=== PATIENT | female | born 1990 | race Caucasian/White ===

== ENCOUNTER 2022-10-02 13:48 | Emergency (ER) | payer OTHER, MEDICAID, SELFPAY ==
[2022-10-02] VITALS (13 sets, daily range): BP systolic 114–136; BP diastolic 76–90; PULSE 86–121; RESP 18; TEMP 36.9; O2SAT 81–100
--- NOTE | 2022-10-02 15:37 | CRLHL7_ITS ---
For Patients: As a result of the Century Cures Act, medical imaging exams and procedure reports are released immediately into your electronic medical record. You may view this report before your referring provider. If you have questions, please contact your health care provider. INDICATION: Six weeks and bleeding. TECHNIQUE: Ultrasound pelvis transabdominal and transvaginal for better assessment or to better visualize the endometrium. Real-time sonographic images with spectral and color Doppler imaging of the ovaries were obtained. COMPARISON: None. FINDINGS: Uterus: size cm. Normal echotexture of the myometrium. No masses. Endometrium: Transvaginal imaging was performed to better evaluate the endometrium. Endometrial thickness measures 17 mm. No intrauterine gestational sac. Right ovary 4.3 x 2.6 x 3.0 centimeters. Left ovary 3.1 x 1.9 x 2.1 centimeters. Indeterminate 1.7 centimeter solid structure adjacent to the right ovary with some scant vascularity. Normal arterial and venous blood flow is demonstrated in both ovaries. Cul-de-sac: Trace free fluid. IMPRESSION: No intrauterine gestational sac. Recommend OB Gyne follow-up and correlation with beta HCG and short-term follow-up with ultrasound. Indeterminate 1.7 centimeter solid structure adjacent to the right ovary with some scant vascularity. Ectopic is not excluded given no intrauterine gestational sac in this patient. Recommend OB Gyne follow-up and correlation with beta HCG and short-term follow-up with ultrasound. Case discussed with Dr. Aguiar at 3:30 p.m. on 10/02/2022. Dictated by Abhay Sabillon MD @ 10/02/2022 5:22:37 PM (Electronically Signed)
--- NOTE | 2022-10-02 16:58 | ED.NURSE ---
Pt resting on cart. Dad at bedside. Pt denies needs.
--- NOTE | 2022-10-02 16:59 | ED.GENADULT ---
HPI - General Adult General Date Seen: 10/02/22 Chief complaint: Vaginal Bleeding Stated complaint: 6 weeks and bleeding Time Seen by Provider: 10/02/22 16:40 Source: patient History of Present Illness HPI narrative: Patient is a 32-year-old who presents with an LMP of August 19, starting to have spotting and bleeding this morning an ongoing since then. This was a bit of a surprise but desired and she is tearful and somewhat upset at the possibility that she might be dealing with a miscarriage. She has had some cramping but minimal. No significant abdominal pain. No complications or difficulties with her prior 2 pregnancies. Her youngest child is almost 1-year-old. She has not had any fevers, vomiting, urinary symptoms. No recent trauma. She is O-positive. Related Data Allergies Allergy/AdvReac Type Severity Reaction Status Date / Time Penicillins Allergy Verified 10/02/22 14:37 Review of Systems Status of ROS: Reports: 10 or more systems reviewed and unremarkable except as noted in History and below PFSH PFS Social History Smoking Status: Never smoker Do you use any of these nicotine containing products: None Second hand tobacco smoke exposure: Yes How often do you have a drink containing alcohol: monthly or less How many standard drinks containing alcohol do you have on a typical day: 1 or 2 How often do you have six or more drinks on one occasion: Never AUDIT-C Alcohol total score: 1 Non-prescribed substance use: denies use service: No Exam Narrative: Exam Narrative: Vital signs as noted above. In general, an alert, well-appearing patient. Head: Normocephalic, atraumatic. Eyes: Pupils are equal reactive. Extraocular movements are full. Conjunctivae are normal. ENT: Mucous membranes are moist. Throat is normal. Neck: Supple without lymphadenopathy. Heart: Regular rate and rhythm. No murmur or rub. Lungs: Clear bilaterally. No increased work of breathing, crackles or wheezes. Abdomen: Soft and nontender. No organomegaly. Extremities: Well perfused. No edema. No calf tenderness. Pulses intact. Neurologic: Patient is alert and oriented to person and place. Speech is fluent. Face is symmetric. Moves all extremities equally. Affect: Normal. Skin: Warm and dry. Well perfused. Const: Vital Signs, click to edit/add: Vital Signs - 24 hr 10/02/22 14:37 10/02/22 16:30 10/02/22 16:45 Temperature 98.4 F Pulse Rate 91 Pulse Rate [Pulse Oximeter] 86 96 Respiratory Rate 18 Blood Pressure Blood Pressure [Ri ght Forearm] 136/90 H 132/88 Pulse Oximetry 100 100 99 Oxygen Delivery Me thod Room Air 10/02/22 17:00 10/02/22 17:02 10/02/22 17:15 Temperature Pulse Rate 91 86 92 Pulse Rate [Pulse Oximeter] Respiratory Rate Blood Pressure 125/81 Blood Pressure [Ri ght Forearm] Pulse Oximetry 98 98 99 Oxygen Delivery Me thod 10/02/22 17:30 10/02/22 17:31 10/02/22 17:45 Temperature Pulse Rate 88 89 94 Pulse Rate [Pulse Oximeter] Respiratory Rate Blood Pressure 114/79 Blood Pressure [Ri ght Forearm] Pulse Oximetry 99 100 100 Oxygen Delivery Me thod 10/02/22 18:00 10/02/22 18:02 10/02/22 18:15 Temperature Pulse Rate 93 88 91 Pulse Rate [Pulse Oximeter] Respiratory Rate Blood Pressure 118/76 Blood Pressure [Ri ght Forearm] Pulse Oximetry 100 100 100 Oxygen Delivery Me thod 10/02/22 18:31 Temperature Pulse Rate 121 H Pulse Rate [Pulse Oximeter] Respiratory Rate Blood Pressure Blood Pressure [Ri ght Forearm] Pulse Oximetry 81 L Oxygen Delivery Me thod Documenting provider has reviewed patient's vital signs: yes Course Course Hospital Course: We were able to access her [facility] records to confirm her blood type. I have ordered a quant HCG as well as a CBC. A formal OB transvaginal ultrasound is pending at this time, however my review of the images does not show a visible within the uterus. As the beta HCG is pending, it is difficult to know how to interpret that, but given her dates would expect to see something in the uterus at this point. Beta hCG returned at 162. Hemoglobin normal. Final radiology report is as follows: No intrauterine gestational sac. Recommend OB Gyne follow-up and correlation with beta HCG and short-term follow-up with ultrasound. Indeterminate 1.7 centimeter solid structure adjacent to the right ovary with some scant vascularity. Ectopic is not excluded given no intrauterine gestational sac in this patient. Recommend OB Gyne follow-up and correlation with beta HCG and short-term follow-up with ultrasound. I have discussed this with the patient. At this point with the very low beta HCG, I suspect this is likely a miscarriage, although I discussed with her at that technically an ectopic cannot be entirely ruled out. She does think interestingly that that structure next to the right ovary has been seen on previous ultrasounds. For now, I have recommended that she have a repeat beta-hCG with her [facility] on Wednesday to document that the beta hCG is continuing to fall. In the meantime, if she were to develop heavy bleeding, severe pain, lightheadedness, fainting, or any other worsening symptoms she should return to the emergency department for re-evaluation. She is comfortable with this. She can take ibuprofen or Tylenol as needed for pain. Further recommendations per her OB Gyne. Vital Signs Vital signs: Initial Vital Signs Temperature 98.4 F 10/02/22 14:37 Temperature Source Temporal Artery Scan 10/02/22 14:37 Pulse Rate 86 10/02/22 14:37 Pulse Rhythm 10/02/22 14:37 Respiratory Rate 18 10/02/22 14:37 Blood Pressure 136/90 H 10/02/22 14:37 Blood Pressure Mean 105 10/02/22 14:37 Blood Pressure Position Sitting 10/02/22 14:37 Pulse Oximetry 100 10/02/22 14:37 Oxygen Delivery Method 10/02/22 14:37 Vital Signs Temperature 98.4 F 10/02/22 14:37 Pulse Rate 86 10/02/22 14:37 Respiratory Rate 18 10/02/22 14:37 Blood Pressure 136/90 H 10/02/22 14:37 Pulse Oximetry 100 10/02/22 14:37 Oxygen Delivery Method 10/02/22 14:37 Temperature 98.4 F 10/02/22 14:37 Pulse Rate 121 H 10/02/22 18:31 Respiratory Rate 18 10/02/22 14:37 Blood Pressure 118/76 10/02/22 18:02 Pulse Oximetry 81 L 10/02/22 18:31 Oxygen Delivery Method 10/02/22 14:37 Medical Decision Making Lab Data Labs: Lab Results 10/02/22 10/02/22 Range/Units 17:05 17:05 WBC 10.32 (4.50-11.00) K/uL RBC 4.45 (4.00-5.20) m/uL Hgb 13.7 (12.0-16.0) gm/dL Hct 40.4 (33.0-51.0) % MCV 91 (80-100) fL MCH 31 (26-34) pg MCHC 34 (32-36) gm/dL RDW Coeff of Felipa 12.8 (11.5-15.5) % Plt Count 315 (140-440) K/uL Neut % (Auto) 68.1 (42.0-72.0) % Lymph % (Auto) 22.3 (20-44) % [place] % (Auto) 7.5 (0.0-11.0) % Eos % (Auto) 1.6 (0.0-7.0) % Baso % (Auto) 0.4 (0.0-3.0) % Neut # (Auto) 7.04 H (1.7-7.0) K/uL Lymph # (Auto) 2.30 (0.90-2.90) K/uL [place] # (Auto) 0.80 (0.00-0.90) K/UL Eos # (Auto) 0.16 (0.00-0.50) K/uL Baso # (Auto) 0.04 (0.00-0.30) K/uL HCG, Quant 162.01 mIU/mL Discharge Plan Discharge Clinical Impression: Vaginal bleeding in Patient Disposition: Home, Self-Care Condition: Stable Instructions: Miscarriage (ED) Additional Instructions: Follow-up for repeat HCG testing on Wednesday, further instructions per your OB doctor. Return at any time for heavier bleeding, severe pain, lightheadedness or fainting, or other concerns. Stand Alone Forms: [employer] Info Instructions
[2022-10-02 17:14] LABS: Basophils Absolute Auto 0.04 K/uL (0.00-0.30); Basophils Percent Auto 0.4 % (0.0-3.0); Eosinophils Absolute Auto 0.16 K/uL (0.00-0.50); Eosinophils Percent Auto 1.6 % (0.0-7.0); Hematocrit 40.4 % (33.0-51.0); Hemoglobin* 13.7 gm/dL (12.0-16.0); Immature Granulocytes Abs Auto 0.01 K/uL (0.00-0.30); Immature Granulocytes Pct Auto 0.1 %; Lymphocytes Percent Auto 22.3 % (20-44); Mean Corpuscular HGB Conc 34 gm/dL (32-36); Mean Corpuscular Hemoglobin 31 pg (26-34); Mean Corpuscular Volume 91 fL (80-100); Monocytes Percent Auto 7.5 % (0.0-11.0); Neutrophils Absolute Auto 7.04 K/uL (1.7-7.0); Neutrophils Percent Auto 68.1 % (42.0-72.0); Platelet Count* 315 K/uL (140-440); RDW Coefficient of Variation % 12.8 % (11.5-15.5); Red Blood Count 4.45 m/uL (4.00-5.20); White Blood Count* 10.32 K/uL (4.50-11.00)
[2022-10-02 17:15] LABS: Slide Review Reflex No
[2022-10-02 17:56] LABS: HCG Quantitative* 162.01 mIU/mL
== END 2022-10-02 18:40 | disposition home or self-care (01) ==
PROVIDERS: Emergency Provider Emergency Medicine; PCP Family Medicine
DX: O20.9 Hemorrhage in early pregnancy, unspecified (principal); Z3A.01 Less than 8 weeks gestation of pregnancy
CPT/HCPCS: 36415; 76817; 84702; 85025; 99283; 99284

== ENCOUNTER 2024-02-13 04:35 | Inpatient (IN) | payer BC, SELFPAY ==
[2024-02-13] VITALS (193 sets, daily range): BP systolic 87–160; BP diastolic 50–112; PULSE 60–121; RESP 15–16; TEMP 36.6; O2SAT 89–100; BMI 36.3
[2024-02-13 03:16] LABS: Total Protein Urine 14 mg/dL
[2024-02-13 03:19] LABS: Creatinine Urine 14.1 mg/dL
[2024-02-13 04:21] LABS: Hematocrit 34.1 % (33.0-51.0); Hemoglobin* 11.3 gm/dL (12.0-16.0); Mean Corpuscular HGB Conc 33 gm/dL (32-36); Mean Corpuscular Hemoglobin 31 pg (26-34); Mean Corpuscular Volume 94 fL (80-100); Platelet Count* 243 K/uL (140-440); Red Blood Count 3.64 m/uL (4.00-5.20); White Blood Count* 8.58 K/uL (4.50-11.00)
[2024-02-13] MEDS: hydrOXYzine pamoate 25 MG CAPSULE 50 MG PO ×2 (04:23→15:19)
[2024-02-13 04:29] LABS: Slide Review Reflex No
[2024-02-13 04:35] LABS: Alanine Aminotransferase* 12 U/L (4-35); Aspartate Amino Transferase* 22 U/L (12-35); Blood Urea Nitrogen* 8 mg/dL (5-24); Creatinine* 0.6 mg/dL (0.5-1.5); Estimated Glomerular Filt Rate 123 ml/min
--- NOTE | 2024-02-13 05:27 | P.OBHP_ITS ---
OB - H&P: HPI Labor/Induction History of Present Illness Date Seen: 02/13/24 Chief Complaint: The patient is a 33 year old 4 para 2 at 38.3 weeks gestation by 1st trimester ultrasound, who presents with headache. has been complicated by macrosomia but otherwise normal. Chief complaint: Maternity Indications for induction: pre-eclampsia Narrative: Savannah Tam is a 33 year old female who has had an uncomlicated to date with the exception of renal pelviectasis and macrosomia. She did see perinatology and had a repeat ultrasound that did not show persistent pelviectas is but did show macrosomia. A repeat growth ultrasound at 36 weeks showed EFW at 3400 grams. She has felt well through her with no concerns until yesterday afternoon when she started to develop a headache. This worsened through the day despite tylenol so she contacted the center for advice. She was checking her blood pressure at home and it was 130s-150s/80s-90s. No history of hypertension. No preeclampsia with her other 2 pregnancies. She did have a headache at the end of her 2nd but was also dealing with influenza at the time of delivery. She has not had any recent contractions or leaking fluid. No visual changes. No abdominal pain. She was planning for induction for macrosomia in 4 days. History of Present Dating criteria: based on 1st trimester US only care: good care Labs Blood type: O (+) positive Rubella: immune RPR/VDLR: nonreactive GBS status: negative HBsAG: negative Review of Systems Status of ROS: Reports: 10 or more systems reviewed and unremarkable except as noted in History and below Meds Home Medications and Allergies Home Medications Medication Instructions Recorded Confirmed Type docosahexaenoic acid PO 02/13/24 History sertraline 100 mg tablet 100 mg PO QAM 02/13/24 02/13/24 History Allergies Allergy/AdvReac Type Severity Reaction Status Date / Time Penicillins Allergy Rash Verified 02/13/24 03:17 OB - H&P: Exam Physical Exam: Vital signs: Pulse BP Pulse Ox 80 142/92 H 98 02/13/24 04:27 02/13/24 04:27 02/13/24 02:53 Constitutional: Constitutional: no acute distress Routine HEENT Exam: Head: Present atraumatic and normal inspection Eye: Present EOMI and normal appearance; Absent conjunctival injection or periorbital swelling ENT: Present mucous membranes moist Routine Respiratory Exam: Respiratory: Present CTA bilaterally; Absent crackles Routine Cardiovascular Exam: Cardiovascular: RRR, S1 and S2 Detailed Labor and Delivery Exam: Patient Gravid: Yes Dilation (cm): 1 Effacement (%): 30 Cervix position: posterior Consistency: firm Cervical ripeness score: 1 Tachysystole: No Comments: Cervical xxam per RN. Irregular contractions on toco that patient does not feel. Fetus cephalic by vanessaopolds and confirmed by bedside ultrasound. EFW [id number] g on exam. Fetus (Single): Station: -3 Amniotic Membrane Status: intact Routine Extremities Exam: Extremities: Absent calf tenderness, tenderness or palpable cord Routine Neurological Exam: Present alert, oriented X3, moving all extremities, vision grossly intact and hearing grossly intact; Absent clonus Routine Psychiatric Exam: Present normal affect OB - Results Labs Labs: Short CBC 02/13/24 Range/Units 04:00 WBC 8.58 (4.50-11.00) K/uL Hgb 11.3 L (12.0-16.0) gm/dL Hct 34.1 (33.0-51.0) % Plt Count 243 (140-440) K/uL BMP 02/13/24 04:00 BUN 8 Creatinine 0.6 Liver Function 02/13/24 Range/Units 04:00 AST 22 (12-35) U/L ALT 12 (4-35) U/L Protein creatinine ratio: 1.0 OB - Problem Based A/P Additional Plan (1) Preeclampsia, severe: Status: Acute Plan Meets criteria for preeclampsia with severe features. Multiple blood pressures in elevated but not severe range in triage and on the floor. Headache improved some with vistaril but still present. Will induce now with cytotec due to brewster score of 1. Anticipate transitioning to pitocin later today. Discussed risks with her. Also recommend starting magnesium per protocol. Again discussed risk. Will consult OB per protocol and get q6h labs and frequent vitals. Will manage expectantly. Will need to be on magnesium for 24 hours post delivery. Will need peds provider at delivery due to magnesium.
[2024-02-13] MEDS: LACTATED RINGERS 1000 ML 1,000 ML 75 ML IV ×2 (05:50→18:01)
[2024-02-13] MEDS: MAGNESIUM IV 4 GM/100 ML PIGGYBACK IVPB (05:50)
[2024-02-13 05:57] LABS: Magnesium* 1.8 mg/dL (1.5-2.6)
[2024-02-13] MEDS: MAGNESIUM Infusion 40 GM/1,000 ML IV.SOLN IVPB (06:21)
[2024-02-13] MEDS: miSOPROStoL 25 MCG/0.25 TABLET VAGINAL ×2 (07:25→10:38)
[2024-02-13] MEDS: ACETAMINOPHEN 500 MG TABLET 1000 MG PO ×2 (07:25→15:44)
[2024-02-13] MEDS: PROMETHAZINE 25 MG/ML INJ 12.5 MG IVP (08:46)
[2024-02-13] MEDS: METOCLOPRAMIDE 10 MG TABLET PO (10:38)
--- NOTE | 2024-02-13 10:53 | P.OBPN_ITS ---
Subjective Date Seen: 02/13/24 Narrative: Headache is getting a little worse. Now only on the right side over the mormonism and extending the ear and cheek. Hurts to have her right eye open. No vision changes. No RUQ pain. No fever. Hearing normal. Vistaril helped some. Phenergan and Tylenol haven't helped. Didn't start suddenly. Has had headaches this bad before but haven't lasted this long. Objective Exam: Gen: Lying in a dark room with washcloth over forehead and right eye. Eyes: LENO. EOMs intact. Head: Mild discomfort over right temporal artery but some tenderness above and below as well. Ear Exam: Right TM has small perforation present. No drainage. No pain with movement of the pinna. Oral Exam: Palate raises symmetrically. Tongue moves normally. Abdomen: Gravid uterus, nontender Neuro: CNIII-XII equal bilaterally. Cerebellar testing normal. Strength and sensation equal bilaterally. DTRs equal. No hyperreflexia. No clonus. Vital Signs: Last Vital Signs Temp 97.8 F 02/13/24 10:00 Pulse 99 02/13/24 10:02 Resp 16 02/13/24 10:00 BP 115/75 02/13/24 10:02 Pulse Ox 99 02/13/24 10:51 Contractions Monitor mode: External Contraction Frequency: Not feeling contractions Contraction pattern: Irregular Assessment Assessment: induction ongoing Station: -3 Heart Rate Baseline: 120 Halfway Variability: Moderate (6-25) Monitor Accelerations: Present Monitor Decelerations: None Tracing Comments: Category 1 tracing Plan Plan: Discussed with OB due to severe headache. Likely a combination of preeclampsia, magnesium, and being up all night. Dose of reglan given just a little bit again. If no improvement in 1 hour, will try vistaril again. Could also consider compazine. If progressive nature of headache, will consult perinatology to see if imaging is recommended. Will wait on that for now.
[2024-02-13 11:04] LABS: Hematocrit 36.1 % (33.0-51.0); Hemoglobin* 11.7 gm/dL (12.0-16.0); Mean Corpuscular HGB Conc 32 gm/dL (32-36); Mean Corpuscular Hemoglobin 31 pg (26-34); Mean Corpuscular Volume 94 fL (80-100); Platelet Count* 240 K/uL (140-440); Red Blood Count 3.84 m/uL (4.00-5.20); White Blood Count* 8.08 K/uL (4.50-11.00)
[2024-02-13 11:14] LABS: Slide Review Reflex No
[2024-02-13 11:17] LABS: Aspartate Amino Transferase* 21 U/L (12-35); Creatinine* 0.5 mg/dL (0.5-1.5); Estimated Glomerular Filt Rate 129 ml/min
[2024-02-13 11:18] LABS: Alanine Aminotransferase* 14 U/L (4-35); Blood Urea Nitrogen* 6 mg/dL (5-24)
[2024-02-13] MEDS: OXYTOCIN 30 unit/500 ML in NS 30 UNIT/500 ML BAG IVPB (15:05)
[2024-02-13 17:11] LABS: Hemoglobin* 11.8 gm/dL (12.0-16.0); Mean Corpuscular HGB Conc 33 gm/dL (32-36); Mean Corpuscular Hemoglobin 30 pg (26-34); Mean Corpuscular Volume 93 fL (80-100); Platelet Count* 252 K/uL (140-440); Red Blood Count 3.88 m/uL (4.00-5.20); White Blood Count* 9.61 K/uL (4.50-11.00)
[2024-02-13 17:13] LABS: Slide Review Reflex No
[2024-02-13 17:30] LABS: Creatinine* 0.6 mg/dL (0.5-1.5); Est. Creatinine Clearance* 122.25; Estimated Glomerular Filt Rate 123 ml/min
[2024-02-13 17:31] LABS: Alanine Aminotransferase* 13 U/L (4-35); Aspartate Amino Transferase* 23 U/L (12-35); Blood Urea Nitrogen* 7 mg/dL (5-24)
[2024-02-13] MEDS: ePHEDrine sulfate 5 MG/ML inj 10 MG IVP ×2 (18:50→21:43)
[2024-02-13] MEDS: PHENYLEPHRINE 100 MCG/ML SYRINGE IVP ×3 (18:58→21:21)
--- NOTE | 2024-02-13 18:58 | P.ANBPRC_ITS ---
[facility] Social History What is your current living situation?: I presently have a place to live Problems where you live: no known problems In the past 12 months, utilities in danger of being shut off: no In past 12 months, lack of transportation kept you from medical appts, meetings, work, or getting things needed for daily living: no In the past 12 mos, have been you worried that your food would run out before you had money to buy more?: never true In the past 12 mos, the food you bought just didn't last and you didn't have money to buy more?: never true Smoking Status: Never smoker Do you use any of these nicotine containing products: None Second hand tobacco smoke exposure: Yes How often do you have a drink containing alcohol: monthly or less How many standard drinks containing alcohol do you have on a typical day: 1 or 2 How often do you have six or more drinks on one occasion: Never AUDIT-C Alcohol total score: 1 Non-prescribed substance use: denies use How often does anyone, including family, friends and others, physically hurt you : never How often does anyone, including family, friends and others, insult or talk down to you: never How often does anyone, including family, friends and others, threaten you with harm: never How often does anyone, including family, friends and others, scream or curse at you: never service: No Meds Home Medications and Allergies Home Medications Medication Instructions Recorded Confirmed Type docosahexaenoic acid PO 02/13/24 History sertraline 100 mg tablet 100 mg PO QAM 02/13/24 02/13/24 History Allergies Allergy/AdvReac Type Severity Reaction Status Date / Time Penicillins Allergy Rash Verified 02/13/24 03:17 Results Labs Labs: Laboratory Results - last 24 hr 02/13/24 02/13/24 02/13/24 02:45 04:00 05:20 WBC 8.58 RBC 3.64 L Hgb 11.3 L Hct 34.1 MCV 94 MCH 31 MCHC 33 Plt Count 243 BUN 8 Creatinine 0.6 Estimated Creat Clear Estimated GFR 123 Magnesium 1.8 AST 22 ALT 12 Urine Creatinine 14.1 Protein/Creatinin Ratio 1.00 H Urine Total Protein 14 Blood Type O Positive Antibody Screen NEGATIVE 02/13/24 02/13/24 10:53 17:06 WBC 8.08 9.61 RBC 3.84 L 3.88 L Hgb 11.7 L 11.8 L Hct 36.1 36.0 MCV 94 93 MCH 31 30 MCHC 32 33 Plt Count 240 252 BUN 6 7 Creatinine 0.5 0.6 Estimated Creat Clear 146.70 122.25 Estimated GFR 129 123 Magnesium AST 21 23 ALT 14 13 Urine Creatinine Protein/Creatinin Ratio Urine Total Protein Blood Type Antibody Screen Vital Signs Vital Signs: Last Vital Signs Temp 97.8 F 02/13/24 10:00 Pulse 91 02/13/24 18:56 Resp 16 02/13/24 18:00 BP 100/50 L 02/13/24 18:56 Pulse Ox 98 02/13/24 18:55 Weight: 99.201 kg Height: 165.1 cm Anesthesia Procedures Epidural Insertion Patient Location: OB Start Time: 18:30 Stop Time: 19:00 Start Date: 02/13/24 Stop Date: 02/13/24 Reason for Block: primary anesthetic Patient Position: sitting Performed By: Augustus Da Silva Preanesthetic Checklist: IV checked, risks and benefits discussed, surgical consent, monitors and equipment checked, pre-op evaluation, timeout performed and anesthesia consent Prep: chlorhexidine gluconate Monitoring: blood pressure monitoring, automation controls engineer, continuous pulse oximetry and heart rate Approach: midline Vertebral Space: lumbar (1-5) Needle Type: Tuohy needle Injection Technique: continuous catheter (catheter) Needle gauge: 17 Needle Length (cm): 10 cm Needle Insertion Depth (cm): 5 Catheter Gauge: 19 Catheter Type: multi-orifice Catheter at skin depth (cm): 10 Test Dose Result: negative and lidocaine 1.5% with epinephrine 1 to 200,000
[2024-02-13] MEDS: ROPIVACAINE 0.2% 100 ml 100 ML 12 MG EPIDURAL (19:01)
[2024-02-13] MEDS: LIDOCAINE 2% (PF) 5 ML VIAL EPIDURAL (19:02)
--- NOTE | 2024-02-13 20:05 | P.OBPN_ITS ---
Subjective Date Seen: 02/13/24 Narrative: Savannah is a at 38+3 who presented with severe preeclampsia, needing IOL. She is on magnesium. her induction started with Cytotec and she had 2 doses of Cytotec prior to switching to pitocin as her cervix was more favorable. She had SROM with meconium stained fluid and subsequently requested an epidural. she is now comfortable, not feeling contractions. She does feel sleepy on the magnesium. Headaches have been managed with acetaminophen and vistaril. Labs remain within normal limits. Objective Vital Signs: Last Vital Signs Temp 97.8 F 02/13/24 10:00 Pulse 101 H 02/13/24 19:52 Resp 16 02/13/24 19:00 BP 117/61 02/13/24 19:52 Pulse Ox 100 02/13/24 20:00 Pelvic Exam Dilation (cm): 4 Effacement (%): 70 Station: -3 Contractions Monitor mode: External Contraction Frequency: 3.5 Contraction pattern: Regular Contraction intensity: Moderate Pitocin Rate (mU/min): 5 Assessment Assessment: induction ongoing Station: -3 Amniotic Membrane Status: SROM Status: Category l Heart Rate Baseline: 125 Skilled Nursing Variability: Moderate (6-25) Monitor Accelerations: Present Monitor Decelerations: None Plan Plan: Continue magnesium, serial labs for preeclampsia. BP is below treatment threshold at this time. Continue pitocin per protocol. Anticipate .
--- NOTE | 2024-02-13 22:30 | W.PM.VAGDEL1 ---
Procedure Delivery date: 02/13/24 Procedure Done: Global Events: Pre-Eclampsia, Labor Induction and Meconium Stained Fluid Intrapartal Events: Labor Induction Delivery augmentation: pitocin Delivery monitor: external FHT and external uterine Route of delivery: Episiotomy description: None Laceration description: None Estimated blood loss (mL): 100 Anesthesia type: Epidural Disposition: floor Narrative: The patient is a 33 year-old admitted on 02/13/2024 at 38 Weeks, 3 Days gestation for preeclampsia with severe features.? Cervical exam on admission was 1.5 cm/20 % effaced/-3 station with membranes intact in vertex presentation.? Contractions were absent.? heart rate demonstrated a category 1 tracing.?She received 2 doses of cytotec and then transitioned to pitocin per protocol. SROM occurred at 1748 with meconium stained fluid. ? Labor Analgesia:? epidural ? Pitocin:? yes ? Labor onset:? 184 ? Complete:? 2145 ? Pushing:? 2145 ? heart tones during second stage were category 2. ? At 2204 a viable male delivered in vertex OA presentation over intact perineum via spontaneous vaginal delivery.? was placed on maternal abdomen.? Cord was clamped and cut after a 30-60 second delay.? Nose and mouth were bulb suctioned.? weight pending.? 6 at 1 minute, 7 at 5 minutes, and 8 at 10 minutes.? Shoulder dystocia: no.? Nuchal cord: no. ? Placenta delivered spontaneously and complete at 2208 with a 3 vessel cord. ? Mother and infant were stable after delivery. ? Lacerations:? none. ? Blood loss: 100 mL. Blood loss measurement type: QBL ? Sponge and needles counts are correct. Infant Infant Gender: Male presentation: transverse/shoulder Placental Delivery Description: Spontaneous Cord Description: 3 Vessels
[2024-02-13 23:18] LABS: Hematocrit 34.9 % (33.0-51.0); Hemoglobin* 11.5 gm/dL (12.0-16.0); Mean Corpuscular HGB Conc 33 gm/dL (32-36); Mean Corpuscular Hemoglobin 31 pg (26-34); Mean Corpuscular Volume 93 fL (80-100); Platelet Count* 243 K/uL (140-440); Red Blood Count 3.74 m/uL (4.00-5.20); White Blood Count* 11.57 K/uL (4.50-11.00)
[2024-02-13 23:24] LABS: Slide Review Reflex No
[2024-02-13 23:32] LABS: Alanine Aminotransferase* 14 U/L (4-35); Aspartate Amino Transferase* 25 U/L (12-35); Blood Urea Nitrogen* 9 mg/dL (5-24); Creatinine* 0.6 mg/dL (0.5-1.5); Est. Creatinine Clearance* 122.25; Estimated Glomerular Filt Rate 123 ml/min
[2024-02-14] VITALS (25 sets, daily range): BP systolic 85–142; BP diastolic 48–97; PULSE 76–105; RESP 12–20; TEMP 36.3–36.5; O2SAT 96–99
[2024-02-14] MEDS: IBUPROFEN 600 MG TABLET PO ×3 (00:45→14:51)
[2024-02-14] MEDS: MAGNESIUM Infusion 40 GM/1,000 ML IV.SOLN IVPB (02:08)
[2024-02-14] MEDS: LACTATED RINGERS 1000 ML 1,000 ML 999 ML IV (02:34)
[2024-02-14] MEDS: ACETAMINOPHEN 500 MG TABLET 1000 MG PO (05:06)
[2024-02-14 05:27] LABS: Hematocrit 33.3 % (33.0-51.0); Mean Corpuscular HGB Conc 33 gm/dL (32-36); Mean Corpuscular Hemoglobin 31 pg (26-34); Mean Corpuscular Volume 93 fL (80-100); Platelet Count* 247 K/uL (140-440); Red Blood Count 3.57 m/uL (4.00-5.20); White Blood Count* 13.17 K/uL (4.50-11.00)
[2024-02-14 05:28] LABS: Slide Review Reflex No
[2024-02-14 05:34] LABS: Alanine Aminotransferase* 14 U/L (4-35); Aspartate Amino Transferase* 22 U/L (12-35); Blood Urea Nitrogen* 7 mg/dL (5-24); Creatinine* 0.6 mg/dL (0.5-1.5); Est. Creatinine Clearance* 122.25; Estimated Glomerular Filt Rate 123 ml/min
[2024-02-14] MEDS: DOCUSATE SODIUM 100 MG CAPSULE PO (08:12)
--- NOTE | 2024-02-14 12:20 | PM.ANPOST ---
Post Anesthesia Note Post Anesthesia Note Patient seen: Inpatient Respiratory Status: adequate Cardiovascular Status: adequate Mental Status: baseline Pain: adequate Temp: baseline Anesthetic awareness: N/A Complications: none Follow care: none
[2024-02-14] MEDS: LACTATED RINGERS 1000 ML 1,000 ML 75 ML IV ×2 (14:47→14:48)
--- NOTE | 2024-02-14 18:10 | PM.OBPNVD1 ---
OB - PN:Subj Subjective Time Seen by Provider: 05:55 Date Seen: 02/14/24 Interval history: pt is seen for routine rounds. delivered 2204 last night. Initially first time tried get up after delivery got lightheaded/dizzy. Was given IVF. Has not had again. Ambulating without difficulty since. Is on magnesium for preeclampsia with severe features induced due to headache. no headache now. no pain. . Lochia mild. OB - PN: Obj Exam Physical Exam: Vital signs: Temp Pulse Resp BP Pulse Ox O2 Del Method 97.5 F L 105 H 20 125/79 98 Room Air 02/14/24 08:10 02/14/24 16:13 02/14/24 16:13 02/14/24 16:13 02/14/24 16:13 02/14/24 14:22 Constitutional: Constitutional: no acute distress Routine HEENT Exam: Head: Present normal inspection Eye: Present normal appearance ENT: Present mucous membranes moist Routine Abdominal Exam: Fundus: Present firm (fundus firm at umbilicus) Routine Psychiatric Exam: Psychiatric: Present normal affect and cooperative OB - PN: Obj Data Labs Labs: Laboratory Results - last 24 hr 02/13/24 02/14/24 23:10 05:15 WBC 11.57 H 13.17 H RBC 3.74 L 3.57 L Hgb 11.5 L 11.0 L Hct 34.9 33.3 MCV 93 93 MCH 31 31 MCHC 33 33 Plt Count 243 247 BUN 9 7 Creatinine 0.6 0.6 Estimated Creat Clear 122.25 122.25 Estimated GFR 123 123 AST 25 22 ALT 14 14 OB - PN: A/P Delivery Assessment and Plan (1) Preeclampsia, severe: Status: Acute Plan Comments: s/p last night after induction for severe preeclampsia due to persistent headache. -on magnesium for 24 hours, will d/c tonight -preeclamptic labs wnl this morning and prev also on admit -Start nifedipine and titrate to BP maintain BP <140/90 and optimally < 135/85, discussed with pt and nursing -discussed discharge depends on bp control. all ?'s answered.
[2024-02-14] MEDS: NIFEdipine 30 MG TAB.ER.24 PO (18:31)
[2024-02-15] VITALS (7 sets, daily range): BP systolic 116–136; BP diastolic 81–90; PULSE 73–92; RESP 12–18; TEMP 36.4–37.1; O2SAT 97–98
[2024-02-15] MEDS: IBUPROFEN 600 MG TABLET PO (00:30)
[2024-02-15] MEDS: NIFEdipine 30 MG TAB.ER.24 PO (00:30)
--- NOTE | 2024-02-15 07:45 | PM.OBPNVD1 ---
OB - PN:Subj Subjective Time Seen by Provider: 07:46 Date Seen: 02/15/24 Interval history: Patient is feeling better. Magnesium was discontinued at 2200 last evening. She feels much better off magnesium. Has no dizziness. Has pain well controlled and bleeding within normal limits. Doing well overall. Working on b reast feeding Patient comments OB post-: no complaints, pain well controlled and tolerating diet status: feeding status: breast and bottle feeding OB - PN: Obj Exam Physical Exam: Vital signs: Temp Pulse Resp BP Pulse Ox O2 Del Method 97.5 F L 79 12 116/82 98 Room Air 02/15/24 00:33 02/15/24 00:33 02/15/24 05:53 02/15/24 05:53 02/14/24 18:25 02/14/24 18:25 Constitutional: Constitutional: no acute distress Routine HEENT Exam: Head: Present atraumatic Routine Respiratory Exam: Respiratory: Present CTA bilaterally Routine Cardiovascular Exam: Cardiovascular: Present RRR, S1 and S2; Absent murmur Routine Extremities Exam: Comments: trace le edema bilaterally Routine Back/Spine/Pelvis Exam: Back/Spine: Present full ROM Routine Neurological Exam: Neurological: Present alert and oriented X3 Routine Psychiatric Exam: Psychiatric: Present normal affect OB - PN: A/P Delivery Assessment and Plan (1) Preeclampsia, severe: Problem details: Off magnesium, doing well. Is on 60 of nifedipine in evening. Status: Acute Assessment and Plan: - continue to monitor blood pressures. Had borderline blood pressures overnight. Will monitor today and consider increasing - needs ongoing breast feeding support - monitoring for any signs/symptoms of preeclampsia Plan day: 2 Plan: routine care
[2024-02-15] MEDS: LABETALOL HCL 100 MG TABLET PO (17:44)
--- NOTE | 2024-02-15 18:00 | PM.OBPNVD1 ---
OB - PN:Subj Subjective Time Seen by Provider: 16:45 Date Seen: 02/15/24 Interval history: Patient is feeling better. Magnesium was discontinued at 2200 last evening. She feels much better off magnesium. Has no dizziness. Has pain well controlled and bleeding within normal limits. Doing well overall. Working on breast feeding. Noted some slight swelling in hands and feet. Otherwise feels well. Patient comments OB post-: no complaints and pain well controlled OB - PN: Obj Exam Physical Exam: Vital signs: Temp Pulse Resp BP Pulse Ox O2 Del Method 97.7 F 92 18 136/88 98 Room Air 02/15/24 16:34 02/15/24 16:34 02/15/24 16:34 02/15/24 16:34 02/15/24 16:34 02/15/24 16:34 Constitutional: Constitutional: no acute distress Routine HEENT Exam: Head: Present atraumatic Detailed Lower Extremity Exam: Comments: mild edema of lower extremities. No measurable edema of hands. Routine Psychiatric Exam: Psychiatric: Present normal affect OB - PN: A/P Delivery Assessment and Plan (1) Preeclampsia, severe: Problem details: Off magnesium, doing well. Is on 60 of nifedipine in evening. Status: Acute Assessment and Plan: - blood pressures borderline, not quite at goal of <135/85. Will add labetalol 100 mg bid. First dose now -Continue to monitor blood pressures. Plan - routine cares Plan Plan: routine care
[2024-02-15 18:54] LABS: Rapid Plasma Reagin (RPR) Non Reactive (Non Reactive)
[2024-02-15] MEDS: NIFEdipine 30 MG TAB.ER.24 60 MG PO (20:58)
[2024-02-15] MEDS: DOCUSATE SODIUM 100 MG CAPSULE PO (20:59)
[2024-02-16] VITALS (9 sets, daily range): BP systolic 113–137; BP diastolic 76–91; PULSE 73–81; RESP 16–18; TEMP 36.4–36.9; O2SAT 96–97
--- NOTE | 2024-02-16 07:06 | PM.OBPNVD1 ---
OB - PN:Subj Subjective Date Seen: 02/16/24 Interval history: Patient is feeling better. Magnesium was discontinued at 2200 on 02/13. Doing well overall. Working on breast feeding. Noted some slight swelling in hands and feet, improved. Blood pressure has been controlled with addition of labetalol. OB - PN: Obj Exam Physical Exam: Vital signs: Temp Pulse Resp BP Pulse Ox O2 Del Method 98 F 81 16 117/78 96 Room Air 02/16/24 04:00 02/16/24 04:00 02/16/24 04:00 02/16/24 04:15 02/16/24 04:00 02/16/24 04:00 Narrative: Gen: NAD CV: RRR, normal S1,S2, no murmurs Resp: normal rate and effort, clear to auscultation Abd: Soft Ext: Warm, dry, nonpitting edema. Calves non-tender to palpation. Mood: Appropriate OB - PN: Obj Data Labs Labs: Laboratory Results - last 24 hr 02/13/24 05:20 RPR Screen Non Reactive OB - PN: A/P Delivery Assessment and Plan (1) Preeclampsia, severe: Problem details: Off magnesium, doing well. On 60 of nifedipine in evening and labetalol 100mg BID. Status: Acute Plan Comments: PPD#3 s/p complicated by severe preeclampsia, doing well. Plan: -- Continue to monitor blood pressures -- Continue labetalol BID and nifedipine. -- Continue current cares. -- Encourage ambulation. -- Anticipate discharge to home tomorrow.
[2024-02-16] MEDS: LABETALOL HCL 100 MG TABLET PO ×2 (09:15→21:04)
[2024-02-16] MEDS: IBUPROFEN 600 MG TABLET PO (16:32)
[2024-02-16] MEDS: DOCUSATE SODIUM 100 MG CAPSULE PO (21:04)
[2024-02-16] MEDS: NIFEdipine 30 MG TAB.ER.24 60 MG PO (21:04)
[2024-02-17 04:51] VITALS: BP 117/81; PULSE 75; RESP 18; TEMP 36.5
--- NOTE | 2024-02-17 07:30 | PM.OBDSVD1 ---
DS: Providers Provider Time Seen by Provider: 07:31 Date Seen: 02/17/24 Date of admission: 02/13/24 04:35 Primary care physician: Cassie Segal MD Admitting Clinician: Gilles Roca MD Consults: 02/13/24 05:11 Consult to Physician [CONS] Routine Comment: Consulting Provider: Jess Carlson Has provider been notified: Yes Attending Physician on discharge: Cassie Segal MD Date of Discharge: 02/17/24 DS: Diagnosis Discharge Diagnosis (1) Preeclampsia, severe: Status: Acute Problem details: Magnesium d/c'd 24hours after delivery, On 60 of nifedipine in evening and labetalol 100mg BID. Exam Const: Vital Signs, click to edit/add: Vital Signs - 24 hr 02/16/24 07:52 02/16/24 11:20 02/16/24 16:21 Temperature 98.5 F 98.1 F 97.7 F Pulse Rate [Blood Pressure Cuff] 76 78 73 Respiratory Rate 16 17 16 Blood Pressure [Le ft Arm] 124/86 117/78 122/82 Pulse Oximetry 96 96 96 Oxygen Delivery Me thod Room Air Room Air Room Air 02/16/24 16:32 02/16/24 20:17 02/16/24 23:34 Temperature 97.6 F 97.9 F Pulse Rate [Blood Pressure Cuff] 78 78 Respiratory Rate 18 18 Blood Pressure [Le ft Arm] 113/76 125/81 126/79 Pulse Oximetry Oxygen Delivery Me thod Room Air 02/17/24 04:51 Temperature 97.7 F Pulse Rate [Blood Pressure Cuff] 75 Respiratory Rate 18 Blood Pressure [Le ft Arm] 117/81 Pulse Oximetry Oxygen Delivery Me thod Room Air Common normals: no apparent distress, oriented x3, healthy appearing and alert General appearance: cooperative and comfortable : Uterus: U/1 and firm Neuro: Common normals: oriented x3 Sensorium/orientation: alert OB - DS: Summary Hospital Course Hospital Course: The patient is a 33 year old G 4 P 3 at 38 3/7 weeks gestation that was admitted to the Center on 02/13/24 for induction due to severe preeclampsia due to persistent headache. She was started on magnesium and induced for severe preeclampsia. You can refer to hospital notes/delivery notes for more details. She had an uncomplicated vaginal delivery. She delivered a viable male infant. She is /pumping. magnesium was discontinued 24hours . course complicated by elevated blood pressures and pt was started on nifedipine and labetalol . BP's have been well controlled last 24 hours on these medications. did require IV abx and prolonged monitoring due to apneic spell/repiratory concerns. He has since done well. Today, on day of discharge, pt reports feeling well. Eager to go home. Milk coming in. Lochia decreasing. No pain. No headaches. No concerns. has home bp cuff Peripartum Data Infant delivery method: Vaginal Laceration description: None Infant Gender: Male Time Spent with Patient Time attestation: Total time spent providing and/or coordinating discharge services: Discharge Plan Discharge Disposition: Home, Self-Care Date of Admission: 02/13/24 04:35 Attending Provider on Discharge: Brittany Murillo Consulting Providers: Jess Carlson Primary Care Provider: Cassie Segal Condition: Stable Anticipated Discharge Date/Time: 02/17/24 08:21 Discharge Medications: New nifedipine 30 mg Tablet Extended Release 24hr 60 mg PO HS Qty: 60 0RF acetaminophen 500 mg Tablet 1,000 mg PO Q6H PRN (Reason: pain/fever) Qty: 60 0RF docusate sodium 100 mg Capsule 100 mg PO DAILY Qty: 30 0RF ibuprofen 600 mg Tablet 600 mg PO Q6H PRNQty: 30 0RF labetalol 100 mg Tablet 100 mg PO BID Qty: 60 0RF cholecalciferol (vitamin D3) [Vitamin D3] 125 mcg (5,000 unit) tablet 125 mcg PO DAILY Qty: 90 3RF Continued sertraline 100 mg tablet 100 mg PO QAM docosahexaenoic acid [ DHA] 200 mg PO DAILY Discharge Orders: Discharge Order (Routine); Ordered 02/17/24 Ordered By: Brittany Murillo Patient Education: Preeclampsia and Eclampsia After Delivery (GEN), OB Vaginal/Breast Feeding Additional Instructions: Check bp daily, write down and bring log to appointment Activity Level: Activity as Tolerated Activity Detail: No intercourse or tampons for 6 weeks Discharge Diet: Regular Follow Up Appointments: Cassie Segal MD [Primary Care Provider] - (Wednesday 8:25am at [facility] (should be listed in patients mychart account)) Forms: MyHealth Info Instructions DS:Data Additional Comments Additional comments: preeclampsia labs wnl x 2 during hospital stay
[2024-02-17] MEDS: LABETALOL HCL 100 MG TABLET PO (08:56)
[2024-02-17 08:57] VITALS: BP 133/86; PULSE 84; RESP 17; TEMP 36.4; O2SAT 96
== END 2024-02-17 09:40 | disposition home or self-care (01) | DRG 560 ==
LOC: OB OUT 04:36 → OB 04:36
PROVIDERS: Admitting Provider Surgery; PCP Family Medicine; Visit Provider Family Medicine
DX: O14.14 Severe pre-eclampsia complicating childbirth (principal); Z3A.38 38 weeks gestation of pregnancy; Z37.0 Single live birth; O36.63X0 Maternal care for excessive fetal growth, third trimester, not applicable or unspecified; O77.0 Labor and delivery complicated by meconium in amniotic fluid
CPT/HCPCS: 01967; 36415; 59200; 82565; 82570; 83735; 84156; 84450; 84460; 84520; 85018; 85027; 86592; 86850; 86900; 86901; 88307; A9270; J2371; J2550; J2795; J3475; J7120